=== PATIENT | male | born 2000 | race Two or more races ===

== ENCOUNTER 2024-07-06 04:38 | Emergency (ER) | payer SELFPAY ==
[2024-07-06 04:48] VITALS: BP 200/117; PULSE 102; RESP 18; TEMP 37.2; O2SAT 100
[2024-07-06 04:56] VITALS: BP 175/107; PULSE 106
--- NOTE | 2024-07-06 05:05 | PD.EDADDENDU ---
Emergency Room Addendum Addendum Narrative: When I went to the patient's room to start evaluation, I was told the patient eloped. Ryan Fragoso MD
--- NOTE | 2024-07-06 05:10 | PC.NURSE ---
PT INSISTED TO LEAVE, INFORMED HIM THAT HE NEED TO BE SEEN BY MD, PT SAID HE WILL COMEBACK LATER. PT JUST TOOK OFF WALKING .
== END 2024-07-06 05:17 | disposition left against medical advice (07) ==
LOC: SERX 05:21
PROVIDERS: Emergency Provider Emergency Medicine
DX: Z53.21 Procedure and treatment not carried out due to patient leaving prior to being seen by health care provider (principal)
CPT/HCPCS: 99281

== ENCOUNTER 2024-07-06 06:28 | Emergency (ER) | payer MEDICAID, SELFPAY ==
[2024-07-06 06:29] VITALS: BMI 32.3
[2024-07-06 06:40] VITALS: BP 157/92; PULSE 90; RESP 22; TEMP 36.7; O2SAT 97
--- NOTE | 2024-07-06 06:45 | XR_ITS ---
Examination: Hand, left 3 views Technique: Hand AP, oblique, lateral 3 views Date and time of exam: July 06, 2024 0649 hours INDICATIONS: Injured hand today with third digit pain. FINDINGS: Large soft tissue defect at distal third digit Comminuted fractures off the ungual tuft tip distal phalanx third digit with separation of a main fracture fragment No definite opaque foreign bodies IMPRESSION: Comminuted fractures of the ungual tuft tip distal phalanx third digit
--- NOTE | 2024-07-06 06:46 | EDRME_ITS ---
Rapid Medical Screening Exam [facility] Arrival date/time: 07/06/24 06:28 23-year-old male with no known medical history presents to the emergency room with a chief complaint of a laceration to his left hand middle finger. Patient states he was heavily drinking last night and is still intoxicated. Patient was seen here overnight but the patient eloped. I have greeted and performed a focused initial assessment of this patient. A comprehensive ED assessment and evaluation of the patient, analysis of all test results, and completion of the medical decision making process will be conducted by additional ED providers. Chief Complaint: Extremity Injury, Upper Vital signs: Vital Signs Temperature 98.0 F 07/06/24 06:40 Pulse Rate 90 07/06/24 06:40 Respiratory Rate 22 H 07/06/24 06:40 Blood Pressure 157/92 H 07/06/24 06:40 Pulse Oximetry (%) 97 07/06/24 06:40 Oxygen Delivery Method Room Air 07/06/24 06:40 Vital signs reviewed by provider: Yes
[2024-07-06] MEDS: DIPHTH,PERTUSS(ACELL),TET VAC 0.5 ML SYR- ADULT IMi (07:27)
[2024-07-06] MEDS: KETOROLAC INJ 60 MG/2 ML VIAL 30 MG IM (07:27)
[2024-07-06] MEDS: LIDOCAINE HCL 1% 20 ML VIAL INFL (07:29)
[2024-07-06 07:41] VITALS: BP 151/101; PULSE 109; RESP 18; TEMP 36.6; O2SAT 97
--- NOTE | 2024-07-06 07:48 | PD.EDWOUND ---
ED Wound/Laceration-RME/HPI General Chief Complaint: Extremity Injury, Upper Stated Complaint: LEFT 3RD DIGIT INJURY. JAMMED FINGER WITH DOOR Arrival date/time: 07/06/24 06:28 Limitations: no limitations RME / HPI RME / HPI narrative: 07/06/24 06:28 23-year-old male with no known medical history presents to the emergency room with a chief complaint of a laceration to his left hand middle finger. Patient states he was heavily drinking last night and is still intoxicated. Patient was seen here overnight but the patient eloped. I have greeted and performed a focused initial assessment of this patient. A comprehensive ED assessment and evaluation of the patient, analysis of all test results, and completion of the medical decision making process will be conducted by additional ED providers. DR. BELTRAN MAIN ED EVALUATION: 23 year old male with no stated medical history presents to the ED for evaluation of laceration to left hand middle finger occurring late last night. Patient reports he was at a [employer] where he had too much to drink . Reportedly while closing a door struck his finger resulting in laceration. States he presented to the ED shortly after it occurred however left and returned. Patient also reported falling down and hitting the back of his head. Now accompanied by very mild pain. No other injuries or lacerations reported. Does not recall when he last received his tetanus vaccine. Related Data Previous Rx's ?Medication ?Instructions ?Recorded cephalexin 500 mg capsule 500 mg PO QID #40 caps 07/06/24 hydrocodone 10 mg-acetaminophen 1 tab PO Q6H PRN pain #20 tabs 07/06/24 325 mg tablet Allergies Allergy/AdvReac Type Severity Reaction Status Date / Time No Known Allergies Allergy Verified 07/06/24 06:32 Review of Systems Review of Systems Narrative Review of Systems: GEN: No fever, no chills, no weight loss EYES: No discharge, no visual changes, no pain HEENT: No ear pain, no congestion, no sore throat PULM: No shortness of breath, no cough, no congestion CV: No chest pain, no dyspnea on exertion, no palpitations GI: No nausea, no vomiting, no diarrhea, no pain, no constipation : No frequency, no urgency, no dysuria MUSC/SKEL: +laceration left middle finger. No joint pain, no back pain SKIN: No rash NEURO: No weakness, +mild headache Past Medical History Past Medical History CARDIAC: Negative Congestive Heart Failure RESPIRATORY: Negative Chronic Obstructive Pulmonary Disease (COPD) GENITOURINARY: Negative Renal Disease ENDOCRINE: Negative Diabetes Mellitus Type 1 or Diabetes Mellitus Type 2 Social History SMOKING STATUS: Current some day smoker ED Exam General Limitations: Present no limitations General appearance: Present alert and in no apparent distress Head Head exam: Present atraumatic, normocephalic and normal inspection Eye Eye exam: Present normal appearance, PERRL and EOMI ENT ENT exam: Present normal exam, normal oropharynx and mucous membranes moist Neck Neck exam: Present normal inspection, full ROM and trachea midline Chest Chest inspection: Present normal inspection and symmetric chest wall rise Respiratory Respiratory exam: Present normal lung sounds bilaterally Cardiovascular Cardiovascular exam: Present regular rate, normal rhythm and normal heart sounds Abdominal Exam Abdominal exam: Present soft and normal bowel sounds Extremities Exam Extremities exam: Present full ROM and other Expanded Upper Extremity Exam Hand L/R front image:  1. laceration (as noted below) Hand L/R back image:  1. Laceration circumferentially from 4 o'clock to 8 o'clock, the nail avulsed, no tissue left to hold the nail bed, pad is intact, neurovascular intact to the pad on the edges Back Exam Back exam: Present normal inspection and full ROM Neurological Exam Neurological exam: Present alert, oriented X3 and CN II-XII intact Psychiatric Psychiatric exam: Present normal affect and normal mood Skin Skin exam: Present warm, dry, intact and normal color Course Quality Measures none Orders Category Date Time Status Set Up Suture Tray STAT Care 07/06/24 06:46 Active Wound Care NOW Care 07/06/24 06:46 Active XR hand comp LT min 3V Stat Exams 07/06/24 06:45 Completed Ketorolac Inj [Toradol Inj] Med 07/06/24 06:45 Discontinued 30 mg IM X1 ONE Lidocaine 1% 20 ml [Xylocaine 1% 20 ML] Med 07/06/24 06:46 Discontinued 20 ml INFL X1 ONE TET,DIP/PERT AC (Adult)-Tdap [Boostrix Adult (Tdap) Med 07/06/24 06:46 Discontinued Vacc] 0.5 ml IMI .ONCE ONE Reevaluation(s) Reevaluation #1: We reviewed all the results and treatment plans. Patient is amenable to discharge with instructions to follow up with the [facility] at [facility] in [place]. Strict return precautions were outlined. Patient was discharged in stable condition. Time: 10:22 Vital Signs Vital signs: Vital Signs Temperature 98.0 F 07/06/24 06:40 Pulse Rate 90 07/06/24 06:40 Respiratory Rate 22 H 07/06/24 06:40 Blood Pressure 157/92 H 07/06/24 06:40 Pulse Oximetry (%) 97 07/06/24 06:40 Oxygen Delivery Method Room Air 07/06/24 06:40 Pulse ox is 97% on room air which is adequate. Procedures -ED Laceration Laceration 1: Site: hand (Laceration circumfrencially from 4 o'clock to 8 o'clock, the nail avulsed, no tisue left to hold the nail bed, pad is intact, neurovascular intact to the pad on the edges) Side (If applicable): left Description: irregular Depth: simple, single layer Local Anesthetic: lidocaine 1% (digital nerve block ) Amount of anesthesia used (mL): 10 Pre-repair: wound explored and irrigated extensively Skin layer closed with: other (Ethilon) Size (cm): 3-0 Number of sutures: 12 Technique: simple, interrupted Wound / Laceration MDM Narrative MDM Narrative:: Marina Sorensen am scribing for and in the presence of Dr. Beltran. Patient data External records reviewed:: [facility] previous records (Per EMR, no previous visits for review ) Clinical information provided by:: patient Social determinants that could affect healthcare access:: alcohol use Patient has the following chronic illnesses:: None reported How is presenting disease/condition affected by chronic disease/condition?: no chronic disease Evaluation data The following diagnostics were reviewed and interpreted by me:: radiology exam(s) Lab and/or radiology exams considered but not ordered:: None Interpretation Summary: Ordering Physician: Puma Astorga Date of Service: 07/06/24 Procedure(s): XR hand comp LT min 3V Accession Number(s): [id number] cc: Puma Astorga; Ta Hernandez MD~ Examination: Hand, left 3 views Technique: Hand AP, oblique, lateral 3 views Date and time of exam: July 06, 2024 0649 hours INDICATIONS: Injured hand today with third digit pain. FINDINGS: Large soft tissue defect at distal third digit Comminuted fractures off the ungual tuft tip distal phalanx third digit with separation of a main fracture fragment No definite opaque foreign bodies IMPRESSION: Comminuted fractures of the ungual tuft tip distal phalanx third digit Dictated By: Ta Hernandez MD Signed By: <Electronically signed by Ta Hernandez MD in [place]> 07/06/24 0724 Medications / Prescriptions Medications or Prescriptions considered but not ordered:: None Medication administrations:: Medication Administration History Discontinued Medications Diphtheria/Tetanus/Acell Pertussis (Diphth,Pertuss(Acell),Tet Vac 0.5 Ml Syr- Adult) 0.5 ml IMi .ONCE ONE Stop: 07/06/24 06:47 Last Admin: 07/06/24 07:27 Dose: 0.5 ml Documented By: RUFUS Ketorolac Tromethamine (Ketorolac Inj 60 Mg/2 Ml Vial) 30 mg IM X1 ONE Stop: 07/06/24 06:46 Last Admin: 07/06/24 07:27 Dose: 30 mg Documented By: RUFUS Lidocaine HCl (Lidocaine Hcl 1% 20 Ml Vial) 20 ml INFL X1 ONE Stop: 07/06/24 06:47 Last Admin: 07/06/24 07:29 Dose: 20 ml Documented By: RUFUS See above Consultations Consultation(s) initiated? (list below): No Diagnosis Wound Differential Diagnosis: laceration, abrasion and avulsion of skin Most likely diagnosis given after review of the tests above:: Crush injury of the left middle finger Closed comminuted fracture of the distal third digit Admission Indicated Admission indicated?: not indicated Explain why admission is indicated or not indicated:: Patient will require further evaluation and management with hand surgeon which is not available here. Will DC home with instructions to follow up with pcp for hand surgeon referral. Admission Request Was there a request for admission?: No Disposition Plan Disposition Plan: Discharge Discharge Attestation Discharge Attestation: The patient and all family members were given an opportunity to ask questions and understood the discharge instructions. Discharge instructions specifically effects, indications for sooner follow up or return to the emergency department, and the expected course of current diagnosis. Patient condition: Stable Discharge Plan Plan Patient Disposition: HOME (Self Care) Prescriptions/Referrals Prescriptions/Med Rec: New cephalexin 500 mg capsule 500 mg PO QID Qty: 40 0RF hydrocodone-acetaminophen 10-325 mg tablet 1 tab PO Q6H MDD 6 PRN (Reason: pain) Qty: 20 0RF Referrals: Washington Norman MD [Primary Care Provider] - In 1 week Problem List Clinical Impression: Crushing injury of distal finger, Closed comminuted fracture of distal phalanx of finger Patient/Caregiver Discharge Instructions Education Materials: ED Fracture, Finger, Closed, ED Laceration, Hand: All Closures Additional Instructions: Follow up with the [facility] at [facility] tomorrow morning. [address] [place] [address] Print Language: [place] Stand Alone Forms: [place] Award Info., Patient Portal Info Letter
[2024-07-06 09:39] VITALS: BP 168/79; PULSE 79; RESP 18; TEMP 36.8; O2SAT 99
== END 2024-07-06 10:42 | disposition home or self-care (01) ==
PROVIDERS: Emergency Provider Family Medicine; PCP Family Medicine
DX: S61.213A Laceration without foreign body of left middle finger without damage to nail, initial encounter (principal); S62.633A Displaced fracture of distal phalanx of left middle finger, initial encounter for closed fracture; W22.09XA Striking against other stationary object, initial encounter; Z23 Encounter for immunization
CPT/HCPCS: 12001; 73130; 90471; 90715; 96372; 99283; J1885; J3490